=== PATIENT | male | born 1990 | race Caucasian/White ===

== ENCOUNTER 2021-08-17 13:22 | Emergency (ER) | payer OTHER ==
[~2021-08-17] VITALS: Ht 175.3 cm; Wt 112.0 kg
[2021-08-17 13:24] VITALS: BP 145/94
[2021-08-17] MEDS ORDERED: DICL100G5 TP (13:38)
[2021-08-17] MEDS ORDERED: CYCL-711 PO (13:38)
[2021-08-17] MEDS ORDERED: IBUP-2213 PO (13:38)
[2021-08-17 14:32] VITALS: BP 145/94
--- NOTE | 2021-08-17 14:35 | NUR ---
NO NURSING INTERVENTIONS NEEDED, NO COMPLETE ASSESSMENT DONE
--- NOTE | 2021-08-17 14:36 | NUR ---
Patient discharged with v/s stable. Written and verbal after care instructions given and explained. Patient alert, oriented and verbalized understanding of instructions. Ambulatory with steady gait. All questions addressed prior to discharge. ID band removed. Patient advised to follow up with PMD. Rx of FLEXERIL, DICLOFENAC, IBUPROFEN given. Patient educated on indication of medication including possible reaction and side effects. Opportunity to ask questions provided and answered.
== END 2021-08-17 14:32 | disposition home or self-care (01) ==
LOC: MED 13:22
DX: M94.0 Chondrocostal junction syndrome [Tietze] (principal); Z88.1 Allergy status to other antibiotic agents; Z79.899 Other long term (current) drug therapy
CPT/HCPCS: 71045; 93005; 99283

== ENCOUNTER 2021-11-16 08:17 | Emergency (ER) | payer OTHER ==
[~2021-11-16] VITALS: Ht 175.3 cm; Wt 114.5 kg
[~2021-11-16 08:17] MED LIST: CYCL-711 PO; DICL100G5 TP; IBUP-2213 PO
[2021-11-16 08:24] VITALS: BP 138/72
--- NOTE | 2021-11-16 08:29 | NUR ---
PT AMBULATED TO BED 11.
--- NOTE | 2021-11-16 08:39 | NUR ---
31 Y/O MALE C/O 01/07 LLQ ABDOMINAL PAIN RADIATING TO LEFT LOWER BACK X4 DAYS. PT STATES HE FEELS LIKE HE "CANNOT COMPLETELY EMPTY HIS BLADDER". PT DENIES TAKING MEDICATION PRIOR TO ARRIVAL. PT DENIES CHEST PAIN, SOB. PT DENIES FEVER OR CHILLS. BED LOCKED IN LOWEST POSITION. BED RAIL X1. PMH: KIDNEY STONES ALLERGIES: AMOXICILLIN
[2021-11-16] MEDS ORDERED: MORPHINE SULFATE 4 MG/ML SYR IVP ONE (08:40)
[2021-11-16] MEDS ORDERED: KETOROLAC 30 MG/ML VIAL IVP ONE (08:40)
[2021-11-16] MEDS ORDERED: ONDANSETRON 4 MG/2 ML VIAL IVP ONE (08:40)
[2021-11-16] MEDS ORDERED: NACL 0.9% 1,000 ML IV ONE (08:40)
--- NOTE | 2021-11-16 08:51 | NUR ---
LAB AT PT BEDSIDE
--- NOTE | 2021-11-16 08:58 | NUR ---
PT TAKEN TO CT VIA WC
--- NOTE | 2021-11-16 09:07 | NUR ---
PT BROUGHT BACK FROM CT VIA W/C.
[2021-11-16] MEDS ORDERED: TAMS0.4C96 PO (09:48)
[2021-11-16] MEDS ORDERED: ONDA-188 SL (09:48)
[2021-11-16] MEDS ORDERED: ACET-5634 PO (09:48)
[2021-11-16] MEDS ORDERED: IBUP-2213 PO (09:48)
[2021-11-16 09:50] LABS: BASOPHILS % (AUTO) 0.4 % (0.0-2.0); EOSINOPHILS # (AUTO) 0.1 K/uL (0-0.4); EOSINOPHILS % (AUTO) 2.1 % (0.0-4.0); HEMATOCRIT 45.9 % (36-52); HEMOGLOBIN 15.3 g/dL (12.0-18.0); MEAN CORPUSCULAR HEMOGLOBIN 30 pg (27-31); MEAN CORPUSCULAR HGB CONC 33 g/dL (33-37); MEAN CORPUSCULAR VOLUME 88.7 fL (80-94); MONOCYTES # (AUTO) 0.5 K/uL (0.8-1.0); MONOCYTES % (AUTO) 9.5 % (1.7-9.3); PLATELET COUNT (AUTO) 269 K/uL (140-450); RED BLOOD CELL COUNT(AUTO) 5.17 MIL/uL (4.20-6.10); WHITE BLOOD COUNT (AUTO) 5.6 K/uL (4.8-10.8)
[2021-11-16 09:57] LABS: ANION GAP 8.3 (8-16); CARBON DIOXIDE 28.9 mmol/L (21-32); CREATININE 1.4 mg/dL (0.6-1.3); POTASSIUM 4.2 mmol/L (3.5-5.1); TOTAL BILIRUBIN 0.5 mg/dL (0.0-1.0)
--- NOTE | 2021-11-16 10:16 | NUR ---
PT resting in bed, even and unlabored breathing. Monitor in place
[2021-11-16] MEDS ORDERED: HYDROcodone/APAP 10/325 MG 1 TAB TAB PO ONE (10:45)
[2021-11-16 10:51] VITALS: BP 124/69
--- NOTE | 2021-11-16 10:53 | NUR ---
Patient discharged with v/s stable. Written and verbal after care instructions given and explained. Patient alert, oriented and verbalized understanding of instructions. Ambulatory with steady gait. All questions addressed prior to discharge. ID band removed. Patient advised to follow up with PMD. Rx of PERCOCET,ZOFRAN, FLOMAX given. Patient educated on indication of medication including possible reaction and side effects. Opportunity to ask questions provided and answered.
[2021-11-16 13:00] LABS: BILIRUBIN,URINE NEGATIVE (NEGATIVE); BLOOD, URINE 1+ (NEGATIVE); COLOR,URINE YELLOW (YELLOW); LEUKOCYTE ESTERASE ,URINE NEGATIVE (NEGATIVE); NITRITE, URINE NEGATIVE (NEGATIVE); UGLUCOSE NEGATIVE (NEGATIVE)
[2021-11-16 13:08] LABS: APPEARANCE,URINE HAZY (CLEAR)
[2021-11-16 13:18] LABS: RBC,URINE 0-5 /HPF (0-5); WBC,URINE 0-5 /HPF (0-5)
== END 2021-11-16 10:53 | disposition home or self-care (01) ==
LOC: MED 08:17
DX: N20.0 Calculus of kidney (principal); F17.200 Nicotine dependence, unspecified, uncomplicated; Z79.891 Long term (current) use of opiate analgesic; Z79.899 Other long term (current) drug therapy; Z79.1 Long term (current) use of non-steroidal anti-inflammatories (NSAID); Z88.0 Allergy status to penicillin
CPT/HCPCS: 36415; 74176; 80053; 81001; 83690; 85025; 96361; 96374; 96375; 99284; J1885; J2270; J2405; J7030

== ENCOUNTER 2022-04-25 14:34 | Emergency (ER) | payer OTHER ==
[~2022-04-25] VITALS: Ht 175.3 cm; Wt 112.9 kg
[~2022-04-25 14:34] MED LIST changes: +ACET-5634 PO; +ONDA-188 SL; +TAMS0.4C96 PO
[2022-04-25 14:42] VITALS: BP 135/96
--- NOTE | 2022-04-25 15:00 | NUR ---
31/M WALKED IN C/O CHEST PAIN, BACK PAIN , DIFFICULTY BREATHING X 2 WEEKS. DENIES PAIN RADIATION. AAO4, AMBULATORY, VITALS STABLE.
[2022-04-25] MEDS ORDERED: ALBU0.0912 IH (17:07)
--- NOTE | 2022-04-25 17:35 | NUR ---
Patient discharged with v/s stable. Written and verbal after care instructions given and explained. Patient verbalized understanding. Ambulatory with steady gait. All questions addressed prior to discharge. Advised to follow up with PMD.
== END 2022-04-25 17:35 | disposition home or self-care (01) ==
LOC: MED 14:34
DX: R06.02 Shortness of breath (principal); R07.9 Chest pain, unspecified; Z88.1 Allergy status to other antibiotic agents; Z79.899 Other long term (current) drug therapy
CPT/HCPCS: 71046; 93005; 99283

== ENCOUNTER 2022-05-29 22:41 | Emergency (ER) | payer OTHER ==
[~2022-05-29] VITALS: Ht 175.3 cm; Wt 108.9 kg
[~2022-05-29 22:41] MED LIST changes: +ALBU0.0912 IH
[2022-05-29 22:58] VITALS: BP 120/70
--- NOTE | 2022-05-29 23:00 | NUR ---
TO LOBBY A/W BED AMBULATORY
[2022-05-29] MEDS ORDERED: FLUORESCEIN OPTH STRIP 1 MG OP ONE (23:50)
[2022-05-29] MEDS ORDERED: TETRACAINE HCL/PF 0.5% OPTH 4 ML BTL OP ONE (23:50)
--- NOTE | 2022-05-30 00:35 | NUR ---
Patient being evaluated by physician at bedside.
[2022-05-30] MEDS ORDERED: NAPR-54 PO (01:16)
[2022-05-30] MEDS ORDERED: ACET-8905 PO (01:16)
[2022-05-30] MEDS ORDERED: TOBR5SOL17 RIGHT EYE (01:17)
[2022-05-30 01:26] VITALS: BP 112/62
--- NOTE | 2022-05-30 01:26 | NUR ---
Patient discharged with v/s stable. Written and verbal after care instructions given and explained. Patient alert, oriented and verbalized understanding of instructions. Ambulatory with steady gait. All questions addressed prior to discharge. ID band removed. Patient advised to follow up with PMD. Rx of NORCO, NAPROSYN, TOBRAMYCIN given. Patient educated on indication of medication including possible reaction and side effects. Opportunity to ask questions provided and answered.
== END 2022-05-30 01:26 | disposition home or self-care (01) ==
LOC: MED 22:41
DX: S00.11XA Contusion of right eyelid and periocular area, initial encounter (principal); X58.XXXA Exposure to other specified factors, initial encounter; Y93.89 Activity, other specified; Y92.89 Other specified places as the place of occurrence of the external cause; Y99.8 Other external cause status
CPT/HCPCS: 99284

== ENCOUNTER 2022-12-01 12:18 | Emergency (ER) | payer OTHER ==
[~2022-12-01] VITALS: Ht 175.3 cm; Wt 116.1 kg
[~2022-12-01 12:18] MED LIST changes: +ACET-8905 PO; +NAPR-54 PO; +TOBR5SOL38 RIGHT EYE
[2022-12-01 12:21] VITALS: BP 126/79; PULSE 67; RESP 16; TEMP 97; O2SAT 0
[2022-12-01 13:22] LABS: APPEARANCE,URINE CLEAR (CLEAR); BILIRUBIN,URINE NEGATIVE (NEGATIVE); BLOOD, URINE NEGATIVE (NEGATIVE); COLOR,URINE YELLOW (YELLOW); LEUKOCYTE ESTERASE ,URINE NEGATIVE (NEGATIVE); NITRITE, URINE NEGATIVE (NEGATIVE); UGLUCOSE NEGATIVE (NEGATIVE)
[2022-12-01 13:23] LABS: BASOPHILS % (AUTO) 0.7 % (0.0-2.0); EOSINOPHILS # (AUTO) 0.1 K/uL (0-0.4); EOSINOPHILS % (AUTO) 1.6 % (0.0-4.0); HEMATOCRIT 43.5 % (36-52); LYMPHOCYTES # (AUTO) 2.3 K/uL (2.0-11.5); LYMPHOCYTES % (AUTO) 39.6 % (20.5-51.1); MEAN CORPUSCULAR HEMOGLOBIN 30 pg (27-31); MEAN CORPUSCULAR HGB CONC 35 g/dL (33-37); MEAN CORPUSCULAR VOLUME 86.6 fL (80-94); MONOCYTES # (AUTO) 0.5 K/uL (0.8-1.0); MONOCYTES % (AUTO) 7.9 % (1.7-9.3); NEUTROPHILS # (AUTO) 2.9 K/uL (1.8-7.7); NEUTROPHILS % (AUTO) 50.2 % (42.2-75.2); PLATELET COUNT (AUTO) 242 K/uL (140-450); RED BLOOD CELL COUNT(AUTO) 5.02 MIL/uL (4.20-6.10); RED CELL DISTRIBUTION WIDTH 13.8 % (11.6-13.7); WHITE BLOOD COUNT (AUTO) 5.7 K/uL (4.8-10.8)
[2022-12-01 13:33] LABS: ANION GAP 13.4 (8-16); CARBON DIOXIDE 25.8 mmol/L (21-32); CREATININE 1.2 mg/dL (0.6-1.3); POTASSIUM 4.2 mmol/L (3.5-5.1)
[2022-12-01 13:38] VITALS: O2SAT 98
--- NOTE | 2022-12-01 13:45 | NUR ---
PATIENT PRESENTS TO ED WITH ABD PAIN THAT RADIATES TO BILLATERAL FLANK PAIN . PT STATES HE HAS BEEN IN PAIN FOR THREE DAYS. THE PAIN IS SHARP AND THROBBINGA. DENIES N/V/D; SKIN IS PINK/WARM/DRY; AAOX4 WITH EVEN AND STEADY GAIT; LUNGS CLEAR BL; HR EVEN AND REGULAR; PT DENIES ANY FEVER, CP, SOB, OR COUGH AT THIS TIME; PATIENT STATES PAIN OF 5/10 AT THIS TIME; VSS; PATIENT POSITIONED FOR COMFORT; HOB ELEVATED; BEDRAILS UP X2; BED DOWN. ER MD MADE AWARE OF PT STATUS. PMHX: KIDNEY STONES ALLERGY AMOXICILLIAN
--- NOTE | 2022-12-01 13:54 | NUR ---
PT HAS BEEN SEEN BY PROVIDER. PTS LABS DRAWN AND SENT. PT URINE SENT.
[2022-12-01 14:06] VITALS: BP 126/79; PULSE 67; RESP 16; TEMP 97; O2SAT 99
== END 2022-12-01 14:10 | disposition home or self-care (01) ==
LOC: MED 12:18
DX: R10.9 Unspecified abdominal pain (principal); R42 Dizziness and giddiness; Z79.899 Other long term (current) drug therapy; Z79.1 Long term (current) use of non-steroidal anti-inflammatories (NSAID); Z79.2 Long term (current) use of antibiotics; Z88.0 Allergy status to penicillin
CPT/HCPCS: 36415; 80048; 81003; 85025; 99284